=== PATIENT | male | born 1985 | race Caucasian/White ===

== ENCOUNTER 2021-05-01 17:38 | Emergency (ER) | payer OTHER, SELFPAY ==
[2021-05-01 17:43] VITALS: BP 108/79; PULSE 68; RESP 14; TEMP 36.4; O2SAT 98
--- NOTE | 2021-05-01 17:51 | W.ED.GENAD ---
Discharge Plan Disposition Patient Disposition: HOME Condition: Stable Discharge Details Clinical Impression: Foreign body of knee Primary Care Provider: Ladarius Katz ED Provider: Yaquelin Black Home Meds and New Rx's Prescriptions: No Action No Known Home Meds RF: 0 Discharge Instructions Instructions: Cephalexin (By mouth), Soft Tissue Foreign Body (ED) Additional Instructions: Keep wound clean, dry, covered. Please keep current dressing on until tomorrow. Plan is for you to have procedure completed by Dr. Mendez tomorrow for removal of the retained foreign body. Please do not eat anything after midnight. Dr. Mendez's surgical team will call you first thing in the morning to make a definitive plan in regards to time. You may use Tylenol and/or ibuprofen as needed for discomfort. Tetanus was updated today. Please take The antibiotics as prescribed. If you develop any new or worsening symptoms please seek care urgently once again. Referrals: Dave Mendez MD [ [facility] STAFF PHYSICIAN] - Ladarius Katz MD [Primary Care Provider] - Discharge Data Discharge Date/Time-TO BE ENTERED AT DEPARTURE: 05/01/21 21:40 Medical Decision Making Patient is a pleasant 35 year old female presenting today with c/c of laceration and concern for FB in the right knee. Reprots that he was using a chisel prior to arrival and a piece of the chisel broke off striking his knee. Denies other injury. Unknown tetanus. As patient arrived, suffered brief syncopal event, witnessed by signficant other. States he has had these mutliple times in the past, always associated with sight of his own blood. Has never had exertional syncope. Is able to identify prodromal symptoms. Signifcant other caught him, no trauma. On exam, patient has a 5mm laceration superior to the right knee. No palpable FB. Plan for XR to evalution of possible retained metal FB XR reviewed by radiologist: FINDINGS: Bones/joints: Small joint effusion. There is no evidence of acute fracture. There is no evidence of joint malalignment or dislocation. Soft tissues: Radiopaque foreign body overlies the suprapatellar soft tissues. There are no soft tissue masses or fluid collections. IMPRESSION: 1. Radiopaque foreign body overlies the suprapatellar soft tissues. 2. Small joint effusion. 3. No evidence of acute fracture. 4. No evidence of acute dislocation. Consulted with Dr. Mendez, orthopeidcs oncall. He advised anesthetizing the area, extending the incision and removing the FB. If it is unable to be removed, he will plan to remove FB tomorrow. Patient I discussed her/benefits as well as expected procedural steps associated with removal of the foreign body. He voiced understanding and wishes to proceed. Using standard sterile technique, wound was cleansed and anesthetized with 1% lidocaine with epi. This sufficiently anesthetized the area. Was able to feel the metal but jsut after finding this, patient suffered another sycnopal episode. He announced this was going to happen. Quick recovery to baseline. States he was very nervous about he procedure. After being able to recover, patient was able to tolerate another attempt. Laceration was extended to 1cm. Metal is palpable but difficult to remove. Secondary to requirements of department, there was an interuption of FB removal. When i reevaluated the patient, he appears more anxious again. He would like to hold off on further attempts at removal today and would liek to f/u with Dr. Mendez tomorrow. Spoke again with Dr. Mendez. Plan is to leave the small incision open and cover with sterile dressing. We will start the patient on prophylactic antibiotics. Will update his tetanus. Patient will remain n.p.o. after midnight with plans for him to go to the operating room for removal of foreign body tomorrow. Will obtain rapid COVID testing in preparation for procedure. Will begin on Keflex for retained FB and puncture wound. Return precautions discussed. All of his quesiotns and cocnerns were addressed, he is in agreement with this plan. HPI General Mode of arrival: ambulatory. Date/Time Provider Initiated Documentation: 05/01/21 17:50. Limitations to Documentation: no limitations. Information obtained by: patient, family (significant other) and RN notes reviewed. History of Present Illness 35 year old M presents to the emergency department with the chief complaint of laceration with FB right knee, described as mild, with intensity rated at 2. Quality is described as aching, and is localized to the right and lower extremity. Patient reports no radiation. Patient started experiencing this minute(s) and it has been constant. No relieving factors improve symptom(s), No exacerbating factors reported . Patient notes no other symptoms.. Patient did receive the following treatments prior to arrival, none Related Data Home Medications Medication Instructions Recorded Confirmed Unknown [No Known Home Meds] 05/01/21 05/01/21 Allergies Allergy/AdvReac Type Severity Reaction Status Date / Time No Known Allergies Allergy Unverified 05/01/21 18:05 General Stated Complaint: Laceration GERALDO: 3 Review of Systems Constitutional Constitutional: Reports as per HPI, Denies chills and Denies fever(s) Musculoskeletal Musculoskeletal: Reports as per HPI Integumentary/Breasts Skin/Breast: Reports as per HPI Neurologic Neurologic: Reports as per HPI, Denies sensory deficit and Denies paresthesias [facility] Social History Smoking/Tobacco Use Status: Current every day Tobacco Type: cigarettes Years smoked: 15 Tobacco: How many years used: 15 Smoking risk assessment performed?: Yes Alcohol Intake: never Drug use: Never Substance use type: marijuana Do you feel safe at home: Yes Do you feel safe in your relationship?: Yes Exam Const General: cooperative, healthy appearing, comfortable, no acute distress and well developed Nutritional Appearance: average body habitus and well nourished Orientation: alert and awake Resp Effort & Inspection: normal respiratory effort, able to speak in complete sentences and no respiratory distress Cardio Rate: regular rate Rhythm: regular rhythm Skin Trauma: laceration (as below) Neuro General: patient alert and patient awake Cognition: normal cognition Speech: speech normal Gait: normal gait Sensory Exam: no sensory deficits noted Extrem Knee images: 1. 5mm laceration. No active bleeding. Small amount of surrounding swelling. No erythema, warmth, discharge. No effusion. Patient able to straight leg raise against resistance. Ligamentously intact on exam. 2+ distal pulses. Sensation intact. Psych Appearance: grossly normal and well kempt Mental Status: mental status grossly normal Speech and Movement: speech and movement normal Course Vital Signs Vital signs: Vital Signs Temperature 36.4 C L 05/01/21 17:43 Pulse 68 05/01/21 17:43 Respiratory Rate 14 05/01/21 17:43 Blood Pressure 108/79 05/01/21 17:43 Pulse Oximetry 98 05/01/21 17:43 Temperature 36.4 C L 05/01/21 17:43 Temperature Source Skin 05/01/21 17:43 Pulse 68 05/01/21 17:43 Respiratory Rate 14 05/01/21 17:43 Blood Pressure 108/79 05/01/21 17:43 Blood Pressure Position Sitting 05/01/21 17:43 Pulse Oximetry 98 05/01/21 17:43 Oxygen Delivery Method Room Air 05/01/21 17:43 Oxygen Flow Rate 0 05/01/21 17:43 Pain Level 2 05/01/21 17:43
--- NOTE | 2021-05-01 18:52 | DI.RAD_ITS ---
Exam(s) XR KNEE RT 4V AP,LAT,ARMEN,PAT EXAM: XR KNEE RT 4V AP,LAT,ARMEN,PAT CLINICAL HISTORY: FB right knee superior to patella. TECHNIQUE: 2D digital imaging was performed. COMPARISON: No exams were available for comparison FINDINGS: There is no evidence of acute fracture nor prominent joint effusion. There is a small amount of incr eased joint fluid. Bone density is normal. The main finding here is a radiopaque foreign body in the anterior soft tissues so seated with the qu adriceps tendon, located approximately 2.4 cm above the superior pole of the patella. Some thickenin g of the quadriceps tendon adjacent to this foreign body is noted. No other foreign bodies identifie d. IMPRESSION: Significant deep subcutaneous anteriorly located foreign body up against the quadriceps tendon which appears thickened. No osseous findings. DATA REPOSITORY: RADIATION DOSE DELIVERED:
--- NOTE | 2021-05-01 19:29 | DI.VRAD_ITS ---
PROCEDURE INFORMATION: Exam: XR Left Knee Exam date and time: 05/01/2021 6:23 PM Age: 35 years old Clinical indication: Injury or trauma; Wound; Patella or knee; Right; With foreign body TECHNIQUE: Imaging protocol: XR Left knee. Views: 4 or more views. COMPARISON: No relevant prior studies available. FINDINGS: Bones/joints: Small joint effusion. There is no evidence of acute fracture. There is no evidence of joint malalignment or dislocation. Soft tissues: Radiopaque foreign body overlies the suprapatellar soft tissues. There are no soft tissue masses or fluid collections. IMPRESSION: 1. Radiopaque foreign body overlies the suprapatellar soft tissues. 2. Small joint effusion. 3. No evidence of acute fracture. 4. No evidence of acute dislocation. Dictated and Authenticated by: Nicholas Rg MD. Ordering:YUE Jamison MD
[2021-05-01] MEDS: Cephalexin 500 MG CAP 1000 MG PO (21:30)
[2021-05-01 21:35] VITALS: BP 110/59; PULSE 57; RESP 16; TEMP 36.7; O2SAT 99
[2021-05-01 21:48] LABS: Source Nasal/Nares
[2021-05-01 22:38] LABS: COVID-19 PCR Negative (Negative)
== END 2021-05-01 21:40 | disposition home or self-care (01) ==
PROVIDERS: Emergency Provider Physician Assistant; PCP Pediatrics
DX: S81.021A Laceration with foreign body, right knee, initial encounter (principal); W27.0XXA Contact with workbench tool, initial encounter; Z20.822 Contact with and (suspected) exposure to COVID-19
CPT/HCPCS: 87635; 90471; 99284; 73564; 99283

== ENCOUNTER 2021-05-02 11:50 | Day surgery (SDC) | payer OTHER, SELFPAY ==
--- NOTE | 2021-05-02 06:56 | W.PM.HP.N ---
Date of service: 05/02/21 Time of Service: 13:50 Assessment and Plan Assessment and plan (1) Foreign body of knee: Status: Acute Assessment and plan: 35-year-old male with right knee small metallic foreign body Unable to be removed in the emergency department last night. Tetanus and antibiotic prophylaxis provided. Decision to proceed with outpatient day surgery today 05/02/2021 right knee (distal thigh) wound exploration, removal of foreign body, and irrigation and debridement. MAC and local anesthesia. C arm available if needed. The risks, benefits, and alternatives were thoroughly discussed. Patient was counseled regarding pain management, expected postoperative course, and recovery timeline. All questions were answered. Informed consent was obtained. Agree and understand treatment plan. Follow up 10-14 days after surgery. Will call if any changes or concerns. Qualifiers: Encounter type: initial encounter Laterality: right Qualified Code(s): S80.251A - Superficial foreign body, right knee, initial encounter History of Present Illness History of Present Illness Chief Complaint: Right knee foreign body Narrative: 35-year-old male hammering [place] piece of metal broke off hammer lodged itself in the distal anterior thigh above the knee. Presented to emergency department where foreign body removal was unsuccessful. Returns to day surgery today for removal under anesthesia. Review of Systems All systems reviewed & are unremarkable except as noted in HPI and below PFSH Surgical History [place] teeth extracted Social History Smoking/Tobacco Use Status: Current every day Tobacco Type: cigarettes Years smoked: 15 Tobacco: How many years used: 15 Smoking risk assessment performed?: Yes Alcohol Intake: never Drug use: Never Substance use type: marijuana Details: Pt reports last having smoked marijauna last night 05/01/21. Do you feel safe at home: Yes Do you feel safe in your relationship?: Yes Meds Allergies and Home Medications Allergies Allergy/AdvReac Type Severity Reaction Status Date / Time No Known Allergies Allergy Unverified 05/02/21 12:13 Home Medications Medication Instructions Recorded Confirmed Type Unknown [No Known Home Meds] 05/01/21 05/02/21 History Exam Const General: cooperative, comfortable and no acute distress Orientation: alert, awake and not confused Limitations: mental status not altered and no language barrier [facility] Head: normocephalic and atraumatic Neck Neck: normal visual inspection and full ROM Resp Effort & Inspection: normal respiratory effort, able to speak in complete sentences, no audible wheezes and no grunting Cardio Other: 2+ radial pulse. Regular rate and rhythm. General: deferred Skin General skin exam: no rashes or lesions noted Neuro General: patient alert, patient awake and patient oriented x3 Cognition: normal cognition Speech: speech normal Extrem Other: Right knee: ER dressing in place with small amount dry blood. Small entrance wound proximal to patella anterior distal thigh. With black margins. About 1.5 cm transverse. No active bleeding. Minimal drainage. No visible foreign body. Sensation intact grossly about wound and remainder of extremity. Brisk cap refill. Extensor mechanism intact. Able to maintain strong straight leg raise. Psych Appearance: grossly normal Mental Status: mental status grossly normal Speech and Movement: speech and movement normal Affect: normal affect Attitude: cooperative Results Imaging Imaging Studies: Knee x-ray shows small metallic foreign body superficial to the quadriceps tendon in the subcutaneous tissues proximal to the patella and the distal anterior thigh
[2021-05-02 12:16] VITALS: BP 108/71; PULSE 60; RESP 16; TEMP 36.6; O2SAT 99
--- NOTE | 2021-05-02 12:43 | ANES.PREOP_ITS ---
General Info Date of Service Date Performed: 05/02/21 Height: 5 ft 5 in Weight: 68.2 kg Body Mass Index (BMI): 25.0 Surgical Procedure: Operation Date: 05/02/21 16:55 Proposed Procedures Side Surgeon p Foreign Body Removal/Major Right Dave Mendez MD Meds Allergies and Home Medications Allergies Allergy/AdvReac Type Severity Reaction Status Date / Time No Known Allergies Allergy Unverified 05/02/21 12:13 Home Medication Medication Instructions Recorded Unknown [No Known Home Meds] 05/01/21 Current Visit Medications: Current Medications Generic Name Dose Route Start Last Admin Trade Name Freq PRN Reason Stop Dose Admin Ringer's Solution 1,000 mls @ 100 mls/hr 05/02/21 10:00 IV INFUSION DENY Sodium Chloride 500 mls @ 0 mls/hr 05/02/21 09:58 Saline 500ml Bag IV PRN PRN As Directed Cefazolin Sodium/Dextrose 2 gm in 50 mls @ 100 mls/hr 05/02/21 10:00 Ancef Duplex IVPB PREOP DENY IV Miscellaneous Supplies 1 each 05/02/21 10:00 Iv Access IV DIRECTED DENY Sodium Chloride 0 ml 05/02/21 09:58 Normal Saline Flush 10 Ml Syr IVP PRN PRN PFSH Active Problems Active Problems: Problem Status Onset Code Foreign body of knee 05/01/21 S80.259A Surgical History Surgical History [place] teeth extracted Tobacco Smoking/Tobacco Use Status: Current every day Tobacco Type: cigarettes Years smoked: 15 Tobacco: How many years used: 15 Alcohol Alcohol Intake: never Substance Use Substance use: Never Substance use type: marijuana Details: Pt reports last having smoked marijauna last night 05/01/21. Vital Signs and Lab Results Vital Signs Most Recent Vital Signs in EMR: Most Recent Vital Signs Temp Pulse Resp BP Pulse Ox 36.6 C 60 16 108/71 99 05/02/21 12:16 05/02/21 12:16 05/02/21 12:16 05/02/21 12:16 05/02/21 12:16 Lab Results Blood Type / Crossmatch: No Data to Display Complete Blood Count: No Data to Display Complete Metabolic Panel: No Data to Display Liver Function Panel: No Data to Display Coagulation Panel: No Data to Display Cardiac Panel: No Data to Display Arterial Blood Gas: No Data to Display Venous Blood Gas: No Data to Display Pancreas Panel: No Data to Display Thyroid Panel: No Data to Display Infectious Disease: Coronavirus (COVID-19)(PCR) Negative (Negative) 05/01/21 21:43 05/01/21 Coronavirus 2019 Source Nasal/nares 05/01/21 21:43 05/01/21 Blood Cultures: No Data to Display Toxicology Panel: No Data to Display Anesthesia Assessment and Plan Anesthesia History Personal History: No History of Anesthesia Complications Family History: No Family History of Anesthesia Complications Exercise Tolerance Exercise Tolerance: Metabolic Equivalents>4 Pertinent Negatives Pertinent Negatives: No Symptoms of GERD, No Major Cardiovascular Symptoms or Complaints, No Major Pulmonary Symptoms or Complaints and No History of CVA/TIA Cardiac & Pulmonary Exam Cardiac Exam: Normal S1/S2 Heart Sounds Pulmonary Exam: Clear Bilateral Breath Sounds Airway Exam Known Difficult Airway: No Mallampati Class: 1 Mouth Opening: Normal (> 3cm) Thyromental Distance: Greater than 3 cm Neck Range of Motion: Full ROM Neck Circumference: Normal Teeth Condition: Normal Dentition ASA Classification ASA Score: ASA 1 Emergency Case?: No NPO Status NPO Status: NPO Clears >2 hours, Solids >8 hours Anesthesia Plan Resuscitation Status: Full Code Anesthesia Technique: General Anesthesia Airway Planned: Natural Airway Monitors Used: Standard Monitors
[2021-05-02] MEDS: Lactated Ringers 1,000 ML 100 ML IV (12:45)
[2021-05-02 13:16] VITALS: BMI 25.0
[2021-05-02] MEDS: ceFAZolin 2 GM/50 ML BAG IVPB (14:07)
--- NOTE | 2021-05-02 14:15 | DI.RAD_ITS ---
Exam(s) XR KNEE RT 1V EXAM: XR KNEE RT 1V CLINICAL HISTORY: Foreign body right knee. TECHNIQUE: 2D digital imaging was performed. COMPARISON: CR,XR XR KNEE RT 4V AP,LAT,ARMEN,PAT from 05/01/2021 CR,XR XR KNEE RT 4V AP,LAT,ARMEN,PAT from 05/01/2021 FINDINGS: Fluoroscopy was provided during foreign body removal. Single submitted image reveals absence of the radiopaque foreign body described anteriorly on yesterd ay's x-ray. IMPRESSION: Foreign body REMOVAL. TOTAL FLUOROSCOPY TIME 1.8 SECONDS Total clipped of dose 0.10mGy DATA REPOSITORY: RADIATION DOSE DELIVERED:
[2021-05-02 14:43] VITALS: BP 109/62; PULSE 59; RESP 16; TEMP 36.4; O2SAT 97
--- NOTE | 2021-05-02 14:44 | W.ANESPOSTOP ---
Postoperative Evaluation Date, Time and Location Date Performed: 05/02/21 Time Performed: 14:44 Patient Location: Day Surgery Unit Vital Signs Most Recent Imported Vital Signs: Most Recent Vital Signs Temp Pulse Resp BP Pulse Ox 36.6 C 60 16 108/71 99 05/02/21 12:16 05/02/21 12:16 05/02/21 12:16 05/02/21 12:16 05/02/21 12:16 Most Recent Manually Entered Vital Signs: Adult Blood Pressure: 109/62 Heart Rate: 59 Respirations: 16 Oxygen Saturation (%): 95 Temperature (C): 36.4 C Pain Score (0-10 Scale): 0 Pain Score Most Recent Pain Score: Most Recent Pain Score Pain Level 2 05/02/21 12:16 Assessment Mental Status: Awake (Alert & Oriented to Patient Baseline) Airway and Respiratory Function: Patent airway with normal (patient baseline) respiratory exam Cardiovascular Function: Hemodynamically Stable Hydration Status: Adequately Hydrated Nausea & Vomiting: No Nausea or Vomiting Pain: Pt. Denies Any Pain Peripheral Nerve Block: Patient did not receive a nerve block
[2021-05-02 14:46] VITALS: BP 109/62; PULSE 59; RESP 16; TEMPC 36.4; O2SAT 95
[2021-05-02 15:19] VITALS: BP 103/66; PULSE 45; RESP 16; TEMP 36.2; O2SAT 100
--- NOTE | 2021-05-02 15:22 | W.PM.DSUDISC ---
Discharge Plan Disposition Patient Disposition: HOME Condition: Stable Discharge Details Reason For Visit: Right knee surgery Attending Provider: Dave Mendez Primary Care Provider: None,None Home Meds and New Rx's Prescriptions: Continued No Known Home Meds RF: 0 Discharge Instructions Additional Instructions: Surgery: Right knee (distal thigh) removal of small metallic foreign body Activity: Weightbearing as tolerated. Recommend ice and elevation for a few days to minimize swelling and discomfort. May advance to full activities over the next few weeks as tolerated. No brace or crutches needed. No prescription medications. You may use [id number] Aleve/naproxen, Motrin/ibuprofen, or Tylenol/acetaminophen as needed for mild to moderate pain. Dressings: Leave dressing in place for 3 days. May then remove and leave open to air or cover incision with Band-Aid. May shower after 5 days. Follow-up: 10-[address] Mendez (please call tomorrow morning to make this appointment) Let us know right away if you develop any redness, drainage, fevers, chest pain, or trouble breathing. Do not drink alcohol or drive for at least 24 hours after anesthesia. Please call the office during business hours with any questions or concerns. Referrals: Dave Mendez MD [ [facility] STAFF PHYSICIAN] - DS: Diagnosis Discharge Diagnosis (1) Foreign body of knee: Status: Acute
--- NOTE | 2021-05-02 15:52 | W.PM.OP ---
Date of service: 05/02/21 Time of Service: 14:00 Operative Note Operative Note DATE OF PROCEDURE: 05/02/21 PRE-OP DIAGNOSIS: Right knee (distal anterior thigh) metallic foreign body POST-OP DIAGNOSIS: same PROCEDURE: Right thigh wound exploration, foreign body removal, irrigation and debridement of skin, subcutaneous tissue, and 2cm wound closure, CPT #31593 SURGEON: Dave Mendez SHRINKING MACHINE OPERATOR: Shae Leavitt ANESTHESIA TYPE: Local By Surgeon, MAC and General:No Airway Refer to Anesthesia Record ESTIMATED BLOOD LOSS: 1 PATHOLOGY: none sent TOURNIQUET TIME: 0 COMPLICATIONS: None Patient was transported to: PACU Patient's condition: stable Indications: Please see complete medical record for details. Findings: Small metallic foreign body deep anterior distal thigh on the quadriceps tendon. No joint involvement. Procedure Description: In the operating room, anesthesia was induced. The patient was positioned supine on the operating room table. All bony prominences were well-padded. Preoperative antibiotics were administered. The right distal thigh and knee were prepped and draped. The correct patient, procedure, and side of the procedure were all verified prior to incision. 10 cc of 0.5% bupivacaine containing epinephrine was infiltrated about the existing transverse approximately 2 cm wound. Milking maneuver was used in attempt to deliver the metallic foreign body. Multiple attempts were unsuccessful. The wound was too small to digitally inspect. The wound was filled with irrigation and the irrigation delivered from the wound, but no foreign body present itself. Various snaps and pituitary forceps were used to probe the superficial and then deeper aspects of the wound and attempts to palpate and remove the foreign body. Unfortunate, a foreign body was not found. The C arm fluoroscopy machine was then prepped and draped. While this was happening, careful deep inspection of the wound was performed with the social media assistant holding retractors and moving the small wound as a window. Finally, what appeared to be a small metallic foreign body was visualized deeply on the quadriceps tendon somewhat centrally and laterally. It was grasped in entirety and easily withdrawn as 1 piece with a hemostat. No additional foreign bodies were appreciated. AP and oblique fluoroscopy confirmed complete removal of metallic foreign body. A Lerna was used to probe the deep tissues and confirm no penetration through the extensor mechanism into the joint, there was no joint fluid, no fat droplets, and only a minimal superior rent in the quadriceps tendon about where the foreign body was found. The wound was copiously irrigated with normal saline until there was a clear effluent. The immediate zone of injury skin and subcutaneous tissue was debrided sharply to remove a thin black and layer revealing healthy tissue margins. An additional 10 cc of 0.5% bupivacaine with epinephrine was infiltrated about the superficial and deep layers of the wound. A single buried horizontal type mattress 3-0 Monocryl stitch was used to close the wound. Xeroform applied over the skin followed by 4 x 4 gauze and Tegaderm dressing. The patient awoke from anesthesia without complication and was transferred to the recovery room in a stable condition.
== END 2021-05-02 11:51 | disposition home or self-care (01) ==
PROVIDERS: Visit Provider Student in an Organized Health Care Education/Training Program
PROC: (CPT 27372; principal; 2021-05-02 16:45)
DX: S80.251A Superficial foreign body, right knee, initial encounter (principal)
CPT/HCPCS: 27372; 73560; J0690; J1100; J1885; J2001; J2250; J2405